=== PATIENT | male | born 1965 | race Caucasian/White ===

== ENCOUNTER 2017-01-25 21:44 | Emergency (ER) | payer MEDICARE ==
[~2017-01-25 21:44] MED LIST: ALLEGRA180 PO; AMARYL2 PO; ASAB PO; BEN25 PO; COD LIVER; COD LIVER PO; CRESTOR20 MG PO; CRESTOR40 MG PO; GLUCOPHAGE1000 MG PO; GLUCOPHXR7 PO; GLUCPH PO; HCTZ12.5 PO; LANTUS SC; LIPITOR80 MG PO; LOP100 PO; LOP50 PO; MACROBID PO; MIRALAXPKT PO; NEUR600 PO; NOVOLOG SC; PAXIL40 MG PO; PERCOCET1 TA2 PO; PERCOCET1 TA3 PO; PRILO PO; PRILOSEC40 MG PO; PRIN10 PO; ROXICET1 TAB PO; VANTIN200 MG PO; VESICARE5 PO; VITAMIN D31000 UNIT PO; ZESTORETIC1 TAB PO; [UNRECOGNIZED DRUG - CODE] IM; [UNRECOGNIZED DRUG - OTHER] PO
[2017-01-25 22:55] LABS: BASOPHILS 0.4 %; BASOPHILS ABSOLUTE 0.03 10/3/uL (0.0-0.16); EOSINOPHILS 1.5 %; EOSINOPHILS ABSOLUTE 0.12 10/3/uL (0.0-0.53); HEMATOCRIT 40.2 % (40.0-51.0); HEMOGLOBIN 14.2 g/dL (13.6-17.8); IMMATURE GRANULOCYTES 0.1 %; IMMATURE GRANULOCYTES ABSOLUTE 0.01 10/3/uL (0.0-0.11); LYMPHOCYTES ABSOLUTE 3.24 10/3/uL (0.67-4.30); MANUAL DIFF NO %; MEAN CORPUS HGB CONC 35.3 g/dL (32.0-36.0); MEAN CORPUSCULAR HEMOGLOB 31.1 pg (26.0-34.0); MEAN CORPUSCULAR VOLUME 88.2 fL (80-100); MEAN PLATELET VOLUME 10.5 fL (9.2-13.0); MONOCYTES 6.7 %; MONOCYTES ABSOLUTE 0.54 10/3/uL (0.21-1.20); NEUTROPHILS 51.3 %; NEUTROPHILS ABSOLUTE 4.15 10/3/uL (2.02-8.40); PLATELET COUNT 188 10/3/uL (150-400); RED CELL COUNT 4.56 10/6/uL (4.7-6.1); WHITE BLOOD CELLS 8.1 10/3/uL (4.5-10.5)
[2017-01-25 23:12] LABS: A/G RATIO 1.1 (0.7-1.9); ALBUMIN 3.4 G/DL (3.5-5.0); CALCIUM, SERUM 8.8 MG/DL (8.5-10.4); CHLORIDE, SERUM 107 MMOL/L (96-112); CO2 (CARBON DIOXIDE) 32 MMOL/L (24-34); POTASSIUM, SERUM 4.2 MMOL/L (3.5-5.3); SGOT(AST) 35 U/L (5-40); SGPT(ALT) 67 U/L (5-65); SODIUM, SERUM 145 MMOL/L (135-148); TOTAL BILIRUBIN 0.6 MG/DL (0-1.2); TOTAL PROTEIN 6.4 G/DL (6.0-8.5)
[2017-01-25 23:15] LABS: ALKALINE PHOSPHATASE 89 U/L (45-117); BUN (BLOOD UREA NITROGEN) 13 MG/DL (6-23); CREATININE 1.25 MG/DL (0.70-1.30); GFR AFRICAN AMERICAN 76 ML/MIN (>=60); GFR NON AFRICAN AMERICAN 65 ML/MIN (>=60); GLUCOSE, SERUM 292 MG/DL (60-99)
[2017-01-26 00:02] LABS: ASCORBIC ACID (UR NOT ORDER) NEG (NEG); BILIRUBIN, URINE NEGATIVE (NEG); ER URINALYSIS TAT 0 Hrs 00 Mins; KETONE, URINE NEGATIVE (NEG); LEUKOCYTE ESTERASE(NOT OR NEG (NEG); NITRITE (URINE) NEG (NEG); WBC (NOT ORDERED) (RFLEX) 2 (0-5)
[2017-02-15] MEDS ORDERED: CINNAMONPO PO (17:28)
== END 2017-01-26 00:32 | disposition home or self-care (01) ==
LOC: ER 21:44
PROVIDERS: Emergency Medicine
DX: R10.9 Unspecified abdominal pain (principal); Z87.442 Personal history of urinary calculi; Z88.5 Allergy status to narcotic agent; Z91.038 Other insect allergy status; Z79.82 Long term (current) use of aspirin; Z79.4 Long term (current) use of insulin; Z79.899 Other long term (current) drug therapy
CPT/HCPCS: 74176; 80053; 81001; 83690; 85025; 96374; 99284; A9270-GY; J1170; J2405

== ENCOUNTER 2017-02-19 03:00 | Emergency (ER) | payer MEDICARE ==
[~2017-02-19 03:00] MED LIST changes: +CINNAMONPO PO
[2017-02-19 07:56] LABS: BASOPHILS 0.2 %; BASOPHILS ABSOLUTE 0.02 10/3/uL (0.0-0.16); EOSINOPHILS 1.4 %; EOSINOPHILS ABSOLUTE 0.13 10/3/uL (0.0-0.53); ER CBC TAT 0 Hrs 05 Mins; HEMOGLOBIN 13.9 g/dL (13.6-17.8); LYMPHOCYTES 32.8 %; LYMPHOCYTES ABSOLUTE 3.15 10/3/uL (0.67-4.30); MEAN CORPUS HGB CONC 35.6 g/dL (32.0-36.0); MEAN CORPUSCULAR HEMOGLOB 31.5 pg (26.0-34.0); MEAN CORPUSCULAR VOLUME 88.4 fL (80-100); MEAN PLATELET VOLUME 10.3 fL (9.2-13.0); MONOCYTES 7.6 %; MONOCYTES ABSOLUTE 0.73 10/3/uL (0.21-1.20); NEUTROPHILS ABSOLUTE 5.56 10/3/uL (2.02-8.40); PLATELET COUNT 195 10/3/uL (150-400); RBC DISTRIBUTION WIDTH 13.2 % (12.0-16.0); RED CELL COUNT 4.41 10/6/uL (4.7-6.1); WHITE BLOOD CELLS 9.6 10/3/uL (4.5-10.5)
[2017-02-19 07:58] LABS: MANUAL DIFF NO %
[2017-02-19 08:11] LABS: ALBUMIN 3.5 G/DL (3.5-5.0); ALKALINE PHOSPHATASE 96 U/L (45-117); BUN (BLOOD UREA NITROGEN) 13 MG/DL (6-23); CALCIUM, SERUM 8.4 MG/DL (8.5-10.4); CHLORIDE, SERUM 102 MMOL/L (96-112); CO2 (CARBON DIOXIDE) 33 MMOL/L (24-34); CREATININE 1.01 MG/DL (0.70-1.30); GFR AFRICAN AMERICAN 98 ML/MIN (>=60); GFR NON AFRICAN AMERICAN 85 ML/MIN (>=60); GLOBULIN 3.4 G/DL (2.5-4.1); SGOT(AST) 25 U/L (5-40); SGPT(ALT) 42 U/L (5-65); SODIUM, SERUM 139 MMOL/L (135-148); TOTAL BILIRUBIN 0.6 MG/DL (0-1.2); TOTAL PROTEIN 6.9 G/DL (6.0-8.5)
[2017-02-19 08:12] LABS: GLUCOSE, SERUM 196 MG/DL (60-99)
== END 2017-02-19 09:30 | disposition home or self-care (01) ==
LOC: ER 03:00
PROVIDERS: Emergency Medicine
DX: G89.18 Other acute postprocedural pain (principal); M79.1 Myalgia; I10 Essential (primary) hypertension; R11.0 Nausea; E11.9 Type 2 diabetes mellitus without complications; Z98.890 Other specified postprocedural states; Z88.5 Allergy status to narcotic agent; Z91.038 Other insect allergy status; Z79.82 Long term (current) use of aspirin; Z79.4 Long term (current) use of insulin; Z79.899 Other long term (current) drug therapy
CPT/HCPCS: 71010; 80053; 81001; 85025; 96374; 99284; A9270-GY; J2405